=== PATIENT | female | born 1955 | race Caucasian/White ===

== ENCOUNTER 2019-05-27 20:27 | Emergency (ER) | payer MEDICAID ==
[~2019-05-27] VITALS: Ht 157.5 cm; Wt 91.6 kg
[2019-05-27 20:52] VITALS: Ht 157.5 cm; Wt 91.6 kg
[2019-05-27 21:38] LABS: BASOPHIL % 0.4 % (0-2); PLATELET COUNT 204 x10^3mcL (130-400); RED CELL DISTRIBUTION WIDTH 13.7 % (11.5-14.5)
[2019-05-27 21:54] LABS: CALCIUM 8.9 mg/dL (8.5-10.1); CARBON DIOXIDE 27.7 mmol/L (21-32); CREATININE SERUM 1.1 mg/dL (0.6-1.0); POTASSIUM SERUM 3.9 mmol/L (3.5-5.1)
[2019-05-27 21:58] LABS: BILIRUBIN TOTAL 0.7 mg/dL (0.20-1.00); TOTAL PROTEIN, SERUM 7.1 g/dL (6.4-8.2)
[2019-05-27 21:59] LABS: ALBUMIN 3.1 g/dL (3.4-5.0)
[2019-05-27 22:34] LABS: microscopic required? YES; urine erythrocyte 1+ (NEGATIVE)
[2019-05-28 00:37] VITALS: BP 121/68
== END 2019-05-28 00:37 | disposition home or self-care (01) ==
LOC: ED 20:27
PROVIDERS: Emergency Medicine
DX: N10 Acute pyelonephritis (principal); K43.9 Ventral hernia without obstruction or gangrene; E88.89 Other specified metabolic disorders; J45.909 Unspecified asthma, uncomplicated; E78.00 Pure hypercholesterolemia, unspecified; M19.90 Unspecified osteoarthritis, unspecified site
CPT/HCPCS: J1885; J1956; J2405; J7030

== ENCOUNTER 2019-08-24 09:11 | Emergency (ER) | payer OTHER, MEDICAID ==
[~2019-08-24] VITALS: Ht 154.9 cm; Wt 91.6 kg
[2019-08-24 09:15] VITALS: Ht 154.9 cm; Wt 91.6 kg
[2019-08-24 11:51] VITALS: BP 131/68
== END 2019-08-24 11:51 | disposition home or self-care (01) ==
LOC: ED 09:11
DX: R21 Rash and other nonspecific skin eruption (principal); J45.909 Unspecified asthma, uncomplicated

== ENCOUNTER 2019-09-28 19:34 | Emergency (ER) | payer OTHER, MEDICAID ==
[~2019-09-28] VITALS: Ht 152.4 cm; Wt 90.7 kg
[2019-09-28 19:40] VITALS: Ht 152.4 cm; Wt 90.7 kg
[2019-09-29 02:34] VITALS: BP 158/55
== END 2019-09-29 02:34 | disposition home or self-care (01) ==
LOC: ED 19:34
DX: M17.12 Unilateral primary osteoarthritis, left knee (principal); M25.462 Effusion, left knee; J45.909 Unspecified asthma, uncomplicated; E78.00 Pure hypercholesterolemia, unspecified; Z98.890 Other specified postprocedural states
CPT/HCPCS: J2270; Q0162